=== PATIENT | female | born 1985 | race Caucasian/White ===

== ENCOUNTER 2021-10-21 10:36 | Outpatient (REF) | payer OTHER, SELFPAY ==
[2021-10-21 15:36] LABS: CT PCR NOT DETECTED (Not Detect.); NG PCR NOT DETECTED (Not Detect.)
[2021-10-22 07:47] LABS: Syphilis Screen Nonreactive (Nonreactive)
[2021-10-22 07:49] LABS: HBc Num1 0.05 S/CO (0.00-0.79); HIV AB/AG Nonreactive (Nonreactive); HIV Num 1 0.06 S/CO (0.00-0.99); Hepatitis B Core Antibody Nonreactive (Nonreactive); ~HepC Num1 0.08 S/CO (0.00-0.79); ~Hepatitis C Antibody Nonreactive (Nonreactive)
[2021-10-24 02:32] LABS: HPV mRNA E6/E7 rflx Not Detected (Not Detected)
== END 2021-10-21 10:37 | disposition home or self-care (01) ==
LOC: HO.LAB 10:36
PROVIDERS: PCP Internal Medicine; Visit Provider Advanced Practice Midwife
DX: Z01.419 Encounter for gynecological examination (general) (routine) without abnormal findings (principal); Z11.51 Encounter for screening for human papillomavirus (HPV); Z11.4 Encounter for screening for human immunodeficiency virus [HIV]; Z20.2 Contact with and (suspected) exposure to infections with a predominantly sexual mode of transmission
CPT/HCPCS: 36415; 86704; 86780; 86803; 87389; 87491; 87591; 87624; 88142

== ENCOUNTER → 2022-02-25 08:35 | Outpatient (BNVA) | payer OTHER, SELFPAY | PROVIDERS: PCP Internal Medicine; Visit Provider Advanced Practice Midwife | DX: Z30.433 Encounter for removal and reinsertion of intrauterine contraceptive device (principal) | CPT/HCPCS: 58300; 58301; 81025 ==

== ENCOUNTER → 2023-01-28 09:05 | Outpatient (BNVA) | payer OTHER, SELFPAY | PROVIDERS: PCP Internal Medicine; Visit Provider Advanced Practice Midwife | DX: Z13.89 Encounter for screening for other disorder (principal) ==

== ENCOUNTER 2024-02-04 09:10 | Outpatient (AMB) | payer OTHER, SELFPAY ==
[2024-02-04 09:26] VITALS: BP 98/60; BMI 22.9
--- NOTE | 2024-02-04 09:26 | A.OFFVIS_ITS ---
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 Doing well with no concerns. She tries to eat healthy, is to start exercising. Currently is not sexually active. She denies vaginal itching and irritation. STI screening offered; she accepts. Denies family history of breast, ovarian or colon cancer. Last pap smear 2021, negative. 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 Sexually active: No Sexual orientation: Straight/Heterosexual Gender identity: Female Female Reproductive History Menstrual Age of Menarche: 14 Total pregnancies: 0 Date of last pap smear: 10/22/21 History of abnormal pap smear: No Review of Systems Const All systems reviewed & are unremarkable except as noted in HPI and below Reports as per HPI Eyes Reports no additional complaints ENT Reports no additional complaints Card Reports no additional complaints Resp Reports no additional complaints GI Reports as per HPI and Reports no additional complaints Reports as per HPI Musc Reports no additional complaints Skin/Breast Reports as per HPI Neuro Reports no additional complaints Psych Reports no additional complaints Endo Reports no additional complaints Giovany/Lymph Reports no additional complaints Aller/Immun Reports no additional complaints Physical Exam Vital Signs: Last Vital Signs BP 98/60 02/04/24 09:26 BMI result Body Mass Index 22.9 Const General: cooperative, healthy appearing, no acute distress, well developed and alert Orientation/consciousness: patient oriented x3 HEENT Head: Yes normal to inspection Eyes General: appearance normal, both eyes and all related structures Neck Neck: Yes normal visual inspection Thyroid: Thyroid normal Chest Other: Bilateral scars Chest palpation & inspection: normal inspection of the chest and other (no puckering, dimpling, peau de orange, retraction, discharge, masses) Breast/axilla inspection: normal inspection of the breasts Breast/axilla palpation: normal palpation of the breasts Resp Effort & Inspection: normal respiratory effort GI Inspection: Yes normal to inspection Palpation (GI): Soft to palpation Rectal Exam - Female: deferred General: Yes bladder normal to palpation External Female Exam: normal external appearance and normal appearance of the urethra Speculum Exam - Vagina: normal appearance of the vagina, normal palpation and normal vaginal discharge Speculum Exam - Cervix: normal appearance of the cervix, normal palpation and Other cervical findings present (IUD strings present) Bimanual exam- vagina & uterus: normal bimanual exam, normal palpation, uterine size normal, bladder normal to palpation, normal palpation and non-tender Bimanual Exam- Adnexa, other: no masses Skin General skin exam: no rashes or lesions noted Rashes: no rashes Neuro General: patient oriented x3 Cognition (Neuro): normal cognition Extrem General: Yes normal to inspection Psych Attitude: cooperative Thought process: Normal thought process present Assessment & Plan Assessment & Plan (1) Encounter for well woman exam with routine gynecological exam: Code(s): Z01.419 - Encounter for gynecological examination (general) (routine) without abnormal findings Plan Discussed: Current recommendations for pap smears per ASCCP guidelines. Breast awareness and periodic breast exams. Maintain a healthy lifestyle including a well balanced diet and routine exercise. Use condoms for STI and prevention. Patient verbalizes understanding and agrees to the plan of care. She was given opportunity to ask questions and all questions were answered to the best of my ability. RTO in one year for annual manager philosophy examination. This note is constructed using voice recognition software. While every effort has been made to ensure accuracy, tailing hand errors may have been included. Orders: Orders HIV Ab/Ag Today Z20.2 - Contact with and (suspected) exposure to infections with a predominantly sexual mode of transmission Hepatitis C Antibody Reflex Today Z20.2 - Contact with and (suspected) exposure to infections with a predominantly sexual mode of transmission Hepatitis B Core Antibody Today Z20.2 - Contact with and (suspected) exposure to infections with a predominantly sexual mode of transmission Syphilis Screen Today Z20.2 - Contact with and (suspected) exposure to infections with a predominantly sexual mode of transmission Coding Level of Care Code Est Pt Prev Care 18-39y(17947) Diagnoses Encounter for well woman exam with routine gynecological exam Z01.419
== END 2024-02-04 11:00 | disposition home or self-care (01) ==
PROVIDERS: PCP Internal Medicine; Visit Provider Advanced Practice Midwife
DX: Z01.419 Encounter for gynecological examination (general) (routine) without abnormal findings (principal)
CPT/HCPCS: 99395

== ENCOUNTER 2024-02-04 09:10 | Outpatient (REF) | payer OTHER, SELFPAY ==
[2024-02-05 15:24] LABS: BV Int Neg Control Negative (Negative); BV Int Pos Control Positive (Positive)
== END 2024-02-04 09:11 | disposition home or self-care (01) ==
LOC: HO.LNP 09:10
PROVIDERS: Visit Provider Advanced Practice Midwife
DX: Z01.419 Encounter for gynecological examination (general) (routine) without abnormal findings (principal); Z20.2 Contact with and (suspected) exposure to infections with a predominantly sexual mode of transmission
CPT/HCPCS: 87480; 87510; 87660

== ENCOUNTER 2024-05-12 11:24 | Outpatient (AMB) | payer OTHER, SELFPAY ==
--- NOTE | 2024-05-12 11:31 | AM.OFFWIN_ITS ---
Intake Vital Signs 3 05/12/24 11:34 Height 5 ft 7 in Intake Visit Reasons: rt side of face into ear Intake Note: pt is here for right side of face into ear Patient Tobacco Use Status: Never used Tobacco Allergies No Known Allergies Allergy (Verified 05/12/24 11:35) Do you need a note to return to daycare/school/sports/work: No HPI HPI Comments 2 History of Present Illness0 Details 39 y/o female patient who presents to [facility] walk in clinic with c/o Poison Pastora rash on the face and neck. She was working on her garden few days ago, and believes she might have been in-contact with Poison Pastora plant. She noticed the rash 2 days ago on her face. Reports that rash is very itchy and burning. Denies SOB, CP or wheezing. 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 Hives present erythematous. 2. Hives present erythematous. Resp Effort & Inspection: normal respiratory effort and able to speak in complete sentences Auscultation: clear to auscultation bilaterally Cardio Heart sounds: S1 normal heart sound present and S2 normal heart sound present Skin Other: Erythematous Hives on face and neck. General skin exam: dry skin, erythema and lichenification Neuro General: patient oriented x3, gait normal and moves all extremities Psych Speech and movement: Normal speech and movement present Assessment & Plan Assessment & Plan (1) Rash and nonspecific skin eruption: Code(s): R21 - Rash and other nonspecific skin eruption Plan: Ordered Topical and oral steroids Zyrtec BID, May take Benadrly at bed time. Medications: New 2 triamcinolone acetonide 0.1% 1 appl topical BID 30 grams 0RF R21 - Rash and other nonspecific skin eruption prednisone 50 mg PO DAILY 5 days 5 tabs 0RF R21 - Rash and other nonspecific skin eruption cetirizine (Zyrtec) 10 mg PO DAILY PRN 90 tabs 0RF allergy symptoms R21 - Rash and other nonspecific skin eruption Coding Level of Care Code Est Pt Level 3 (61438) Diagnoses Rash and nonspecific skin eruption R21 Time Spent (min) 15
== END 2024-05-12 12:20 | disposition home or self-care (01) ==
PROVIDERS: PCP Internal Medicine; Visit Provider Nurse Practitioner Family
DX: R21 Rash and other nonspecific skin eruption (principal)
CPT/HCPCS: 99213

== ENCOUNTER 2025-02-07 12:56 | Outpatient (AMB) | payer OTHER, SELFPAY ==
[2025-02-07 13:16] VITALS: BP 108/70; PULSE 83; TEMP 37.2; O2SAT 97
--- NOTE | 2025-02-07 13:16 | MHC.OFFWIV ---
Intake Vital Signs 02/07/25 13:16 Height 5 ft 7 in BMI Reason not done Patient refused/unable BP 108/70 Blood Pressure Location Lt brachial Position Sitting Pulse 83 Pulse Source Pulse Oximeter Temp 99.0 F Temp Source Oral Pulse Oximetry (%) 97 Oxygen Delivery Method Room Air Intake Visit Reasons: EP flu symptoms-cough, congestion Patient Tobacco Use Status: Never used Tobacco Allergies No Known Allergies Allergy (Verified 02/07/25 13:16) Do you need a note to return to daycare/school/sports/work: Yes HPI HPI Comments History of Present Illness Details Patient is a 39yo F with hx of asthma who presents with flu like symptoms Mother tested + Flu A, this am and patient symptomatic first. They live near eachother Onset symptoms Wednesday, Wednesday worse + fever, body aches and No nausea/vomiting fatigue + diarrhea, loose/watery No melena or rbrbp Tried OTC cold/sinus Last dose yesterday + subjective fever/chills worse wednesday/wednesday + cough congestion, Asthma but not using rescue PFSH Medical History Asthma Surgical History Hx of bilateral breast reduction surgery Family History Paternal Aunt History of breast cancer Paternal Grandmother Diabetes Father Heart disease Social History Household Members: None Housing: Apartment Alcohol intake: current Alcohol intake frequency: holidays/special occasions only Patient Tobacco Use Status: Never used Tobacco Current occupational status: employed 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 Sexual orientation: Straight/Heterosexual Gender identity: Female Female Reproductive History Menstrual Age of Menarche: 14 Review of Systems Const Reports body aches, Reports chills, Reports fatigue and Reports fever(s) Eyes Denies change in vision ENT Denies otalgia, Reports nasal congestion and Denies sore throat Card Denies chest pain, Denies syncope and Denies dyspnea Resp Reports cough and Denies dyspnea GI Reports abdominal pain, Denies melena, Denies hematochezia, Reports diarrhea, Denies nausea and Denies vomiting Musc Reports myalgias Skin/Breast Denies rash Neuro Denies syncope Endo Reports fatigue Physical Exam Vital Signs: Last Vital Signs Temp 99.0 F 02/07/25 13:16 Pulse 83 02/07/25 13:16 BP 108/70 02/07/25 13:16 Pulse Ox 97 02/07/25 13:16 Oxygen Delivery Method Room Air 02/07/25 13:16 General: Non-toxic, NAD. Speaking full sentences. Skin: Warm dry throughout Eye: PERRL, EOMI HENT: Airway patent. Uvula midline. No pharyngeal erythema or edema. No SUPERVISOR COKE HANDLING. Bilateral canals clear. Minimal L TM fluid but both non-erythematous, non-bulging. No TM perforation or hemotympanum noted. Respiratory: Faint rhonchi bilaterally without wheeze or crackle. Cardiac: RRR. No murmur Abdominal: BS present but slightly diminished throughout. Non-tender throughout. No palpable masses. No abdominal distention or pusatile mass. Neurology: Alert. No aphasia or facial droop. Gait without abnormality Psych: Good mood and affect Assessment & Plan Assessment & Plan (1) Influenza-like symptoms: Code(s): R68.89 - Other general symptoms and signs Plan: Patient seen and evaluated. Non-toxic appearing. o acute abdomen on exam Use albuterol for rhonchi/asthma symptoms Control fever at home with tylenol [place] diet Influenza/covid/flu swab ordered and obtained/sent to lab Work note given Patient gave verbal understanding and had no additional questions or concerns at time of discharge All questions answered Orders: Orders SARS-CoV2/FLU/RSV Today R68.89 - Other general symptoms and signs Coding Level of Care Code Est Pt Level 3 (59040) Diagnoses Influenza-like symptoms R68.89
--- OUTSIDE RECORDS SUMMARY | 2025-02-07 14:10 | XMS_ITS | Patient Health Record ---
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 Name Role Phone TAHIRANETTELITABRITANYLETITIA Unavailable Allergies No Known Allergies Reason For Referral No Information Medications Medication SIG (Take, Route, Frequency, Duration) Notes Start Date End Date Status Albuterol Sulfate HFA 108 (90 Base) MCG/ACT Inhalation for 24 Days Active Zithromax Z-Bret 250 MG Two tablets one d ay on then one tablet daily Orally once a day for 5 days 09/18/2024 Active Benzonatate 200 MG 1 capsule as needed Orally Three times a day for 5 days 09/18/2024 Active Social History Tobacco Use: Social History Observation Description Date Details (start date - stop date) Never Smoker NA - NA Tobacco Control (Standard) Question Answer Notes Tobacco use: Nonsmoker Vital Signs Height 67 in 09/18/2024 Patient Reported Normal Blood Pressure Patient Reported Normal Temperature Weight 140 lbs 09/18/2024 Patient Reported Normal Blood Pressure Patient Reported Normal Temperature BMI 21.92 kg/m2 09/18/2024 Patient Reported Normal Blood Pressure Patient Reported Normal Temperature Encounters Encounter Location Date Provider Diagnosis [facility] [address] [place] [address] 09/18/2024 ELIANE MCCARTHY Acute upper respiratory infection, unspecified J06.9 Assessments Encounter Date Diagnosis (ICD Code) Assessment Notes Treatment Notes Treatment Clinical Notes Section Notes 09/18/2024 Acute upper respiratory infection, unspecified (ICD-10 - J06.9) TREATMENT PLAN: VIRAL UPPER RESPIRATORY INFECTION Patient presents with URI symptoms which are most likely viral. There is no component of the clinical history supporting bacterial infection. This is a lower risk patient with typical mild symptoms. 1. Make sure to rule out flu/covid by obtaining a home test from your pharmacy. If covid/flu positive, will consider paxlovid or tamiflu if you are a candidate. We recommend that you complete the COVID-19 test ordered today. You may choose to have it conducted at a laboratory, or alternatively, you can purchase an at-home [place] COVID-19 test from your local pharmacy instead of the lab test. 2. CAUTIONTakin g antibiotics for a viral infection or allergies is not recommended. Antibiotics are medications that fight infections caused by bacteria; but Flu, COVID, and other common infections are caused by viruses. Taking antibiotics when you actually have a viral infection does more harm than good. If you take an antibiotic when you have a viral infection, the antibiotic attacks bacteria in your body- bacteria that are either beneficial or at least not causing disease. This misdirected treatment can then promote antibiotic-resista nt properties in harmless bacteria that can be shared with other bacteria or create an opportunity for potentially harmful bacteria to replace harmless ones. This can result in untoward effects of gastrointestinal issues (diarrhea, bloating, discomfort), or worsening of symptoms due to overgrowth of harmful bacteria (pneumonia). We understand your symptoms may transform and change. Therefor, if there is no improvement in current symptoms at all in 3-5 days, you can consider antibiotic therapy but we will leave this decision to you. Consider this if you continue to have fevers >100.4F or have no improvement in symptoms at all. 3. Ibuprofen 400-800mg every 8 hours for pain, fever, chills, body aches (if not allergic) 4. Can offer benzonatate 200mg every 8 hours or bromfed liquid for cough but the efficacy is similar to over the counter cough medicine. 5. Can use over the counter cold/flu medicines for relief. Can use flonase 2 puffs per nostril as nasal steroid for inflammation relief, especially if there is postnasal drip or runny nose. Cepachol or chloraseptic for sore throat. Can also use honey. (if not allergic) 6. If desired, can send albuterol inhaler 2 puffs as needed every 6 hours for shortness of breath or wheezing to help open up airways. 7. I generally recommend avoiding treating viral infections with steroids in the acute phase (~<7 days) to allow the natural immune system to build an appropriate response. Recommended follow up in 3 days. Female patients only please note: Control efficacy can be DIMINISHED while taking antibiotics. It is advised to take additional measures to prevent .PATIENT EDUCATION: UPPER RESPIRATORY INFECTION Overview An upper respiratory infection, or URI, is an infection of the nose, sinuses, or throat. URIs are spread by coughs, sneezes, and direct contact. The common cold is the most frequent kind of URI. The flu and sinus infections are other kinds of URIs. Almost all URIs are caused by viruses. Antibiotics won't cure them. But you can treat most infections with home care. This may include drinking lots of fluids and taking ztet-vak-vffnngd pain medicine. You will probably feel better in 4 to 10 days. Follow-up care is a michele part of your treatment and safety. Be sure to make and go to all appointments, and call your doctor if you are having problems. It's also a good idea to know your test results and keep a list of the medicines you take. How can you care for yourself at home? To prevent dehydration, drink plenty of fluids. Choose water and other clear liquids until you feel better. If you have kidney, heart, or liver disease and have to limit fluids, talk with your doctor before you increase the amount of fluids you drink. Ask your doctor if you can take an kggz-tij-xwlcwev pain medicine, such as acetaminophen (Tylenol), ibuprofen (Advil, Motrin), or naproxen (Aleve). Be safe with medicines. Read and follow all instructions on the label. No one younger than 20 should take aspirin. It has been linked to Sylvester syndrome, a serious illness. Be careful when taking kten-gyq-xmdcqoi cold or flu medicines and Tylenol at the same time. Many of these medicines have acetaminophen, which is Tylenol. Read the labels to make sure that you are not taking more than the recommended dose. Too much acetaminophen (Tylenol) can be harmful. Get plenty of rest. Use saline (saltwater) nasal washes to help keep your nasal passages open and wash out mucus and allergens. You can buy saline nose sprays at a grocery store or drugstore. Follow the instructions on the package. Or you can make your own at home. Add 1 teaspoon of non-iodized salt and 1 teaspoon of baking soda to 2 cups of distilled or boiled and cooled water. Fill a squeeze bottle or neti pot with the nasal wash. Then put the tip into your nostril, and lean over the sink. With your mouth open, gently squirt the liquid. Repeat on the other side. Use a vaporizer or humidifier to add moisture to your bedroom. Follow the instructions for cleaning the machine. Do not smoke or allow others to smoke around you. If you need help quitting, talk to your doctor about stop-smoking programs and medicines. These can increase your chances of quitting for good. 09/18/2024 Other Follow the treatment plan as indicated by the provider. Take any medications as prescribed. If you have any questions about your prescription, ask the pharmacist. Call 911 anytime you think you may need emergency care. For example, call if:You have severe trouble breathing.You have a seizure.Call your doctor now or seek immediate medical care if:You have trouble breathing.You have a fever with a stiff neck or a severe headache.You have pain or pressure in your chest or belly.You have a fever or cough that returns after getting better.You feel very sleepy, dizzy, or confused.You are not urinating.You have severe muscle pain.You have severe weakness, or you are unsteady.You have medical conditions that are getting worse.Watch closely for changes in your health, and be sure to contact your doctor if:You do not get better as expected.You are having a problem with your medicine. Risks, benefits, and side effects of medications (if any) discussed with patient, who agreed to the treatment plan.Patient's condition was stable at the end of the televisit. Follow-up instructions provided, including:Scheduling next appointmentMonitoring symptomsAdhering to treatment planContacting clinic with concernsPatient understood and agreed to comply with the follow-up plan. Plan Of Treatment No Information Insurance Providers Payer Name Payer Address Payer Phone Subscriber Number Group Number Insured Name Patient Relationship to Insured Coverage Start Date Coverage End Date Person [facility] [address] [place] [phone] [id number] Sidney Gaytan Self - patient is the insured Medical (General) History Medical History History ICD Code asthma
--- OUTSIDE RECORDS SUMMARY | 2025-02-07 14:10 | XMS_ITS ---
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 2. CAUTIONTakin john antibiotics for a viral infection or allergies [...] include drinking lots of fluids and taking qklg-xgh-gsnrmnj pain medicine. You will probably feel better [...] your doctor if you can take an fkfs-dlk-tlognio pain medicine, such as acetaminophen (Tylenol), ibuprofen (Advil, Motrin), or naproxen (Aleve). Be safe with medicines. Read and follow all instructions on the label. No one younger than 20 should take aspirin. It has been linked to Sylvester syndrome, a serious illness. Be careful when taking apge-wjy-mldvpht cold or flu medicines and Tylenol at [...] with the follow-up plan. Plan Of Treatment Medication Medication Name Sig Start Date Stop Date Notes Zithromax Z-Bret 250 MG Two tablets one d ay on then one tablet daily Orally once a day for 5 days 09/18/2024 Benzonatate 200 MG 1 capsule as needed Orally Three times a day for 5 days 09/18/2024 Treatment Notes Assessment Notes Acute upper respiratory infe ction, unspecified TREATMENT PLAN: VIRAL UPPER RESPIRATORY INFECTION Patient [...] pharmacy instead of the lab test. 2. CAUTIONTaking antibiotics for a viral infection or allergies [...] disease. This misdirected treatment can then promote antibiotic-resistant properties in harmless bacteria that can be [...] include drinking lots of fluids and taking qnnz-bpg-xagdyoq pain medicine. You will probably feel better [...] your doctor if you can take an acro-omh-gnqstwv pain medicine, such as acetaminophen (Tylenol), ibuprofen (Advil, Motrin), or naproxen (Aleve). Be safe with medicines. Read and follow all instructions on the label. No one younger than 20 should take aspirin. It has been linked to Sylvester syndrome, a serious illness. Be careful when taking alkm-wso-apvdamy cold or flu medicines and Tylenol at [...] increase your chances of quitting for good. Other Follow the treatment plan as indicated [...] are having a problem with your medicine. Next Appt Details Follow Up: PCP, 2-3D, Reason : Progress Notes * Nico HORNERB:1985 (39 yo F)Acc No.[id number]:09/18/2024 Patient:?Sidney HORNER Provider:?ELIANE MCCARTHY MD :1985???Age:39 Y???Sex:Female D ate:09/18/2024 Phone: Address:[address] [place] [address] IVORY [id number] Subjective: * Chief Complaints: * ???Cold / FluPatient request ing service from promotional campaign [employer] * HPI: ???TeleHealth Complaint History:? 39 year-old female, not , presents with upper respiratory complaint. Medical History: Asthma, previous use of antibiotics/anti-viral for similar symptoms (azithromycin) and treatment for a similar condition before. Medications: Previous treatment with a steroid for similar symptoms, previous treatment with an inhaler for similar symptoms, Albuterol Sulfate 2 puffs As needed, no regular use of medications and no treatment with Tamiflu in the last 2 weeks. Allergies: No allergies to medications. Risk Factors: Vaccination of influenza in the current season, no hospitalization in the last month and no close contact with a person who has been diagnosed with Influenza within the last 5 days. Surgical History: No surgical procedure in the last year. PATIENT REPORTS: COUGH CONGESTION MALAISE FEVER WITH GREEN MUCOUS PRODUCTION X 3 DAYS, TAKES DAILY MEDS, DENIES MED ALLERGIES, DENIES . ???TeleVisit Consent:?Patient's identification was confirmed and they were instructed that this visit is based on visual, audio information in addition to previous medical notes and diagnostics. As well it relies on the patient for information related to their physical well being, diagnosis and treatment. The patient acknowledges that they are not being recorded today, and they do not have permission to record this visit either. Patient verbalized understanding to all of the above. * ROS:?All Other Systems:?Review of Systems (ROS)?See HPI for details.?The patient is also suffering from cough (dry), chest congestion, stuffed-up nose, nasal discharge, sore throat, hoarseness and body aches. The patient denies the following: wheezing, feeling of sand or foreign body in eye, redness of eye, nausea, vomiting and diarrhea. * Medical History:? * Surgical History:?Denies Pas t Surgical History * Hospitalization/Major Diagno stic Procedure:?Denies Past Hospitalization * Family History:?No Family Hi story documented..? * Social History:?Tobacco Use:?Tobacco Control (Standard)?Tobacco use:?Nonsmoker.?Drugs/Alcohol:?Do you drink alcohol?: Yes 1 Drink Monthly Social. * Medications:?TakingAlbuterol Sulfate HFA 108 (90 Base) MCG/ACT Aerosol Solution Inhalation Medication List reviewed and reconciled with the patientTaking Albuterol Sulfate HFA 108 (90 Base) MCG/ACT Aerosol Solution Inhalation Medication List reviewed and reconciled with the patient * Allergies:?N.K.D.A.no[Allerg ies Verified] Objective: * Vitals:?Ht: 67 in, Wt:140lbs , BMI:21.92Index. Patient Reported Normal Blood Pressure Patient Reported Normal Temperature. * Examination: ???General Examination: ?GENERAL APPEARANCE:?in no acute distress.?EARS:?hearing grossly intact.?NEUROLOGIC:?alert and oriented , speech clear.?PSYCH:?mood/affect normal, understands directions.? * Physical Examination:?CAM, COOP, SKIN INTACT, PALE, RESP EVEN UNLABORED, VOICE IS HOARSE, COUGH PRODUCTIVE, FULL ROM, AMBULATORY, FATIGUED. Assessment: * Assessment: 1.?Acute upper respiratory i nfection, unspecified - J06.9 (Primary)??? Plan: * Treatment: 2.?Others? Notes: Follow the treatment plan as indicated by the provider. Take any medications as prescribed. If you have any questions about your prescription, ask the pharmacist. Call 911anytime you think you may need emergency care. For example, call if:You have severe trouble breathing.You have a seizure.Call your doctor nowor seek immediate medical care if:You have trouble [...] expected.You are having a problem with your medicine.?? Clinical Notes:Risks, benefits, and side effects of medications (if any) discussed with patient, who agreed to the treatment plan.Patient's condition was stable at the end of the televisit. Follow-up instructions provided, including:Scheduling next appointmentMonitoring symptomsAdhering to treatment planContacting clinic with concernsPatient understood and agreed to comply with the follow-up plan.?? * Procedure Codes:?CHUCK Yung ant / CC Processing [id number] Office Visit, Est Pt., Level 3 Virtual Visit, Modifiers: 95 * Follow Up:?PCP, 2-3D * Billing Information: * Visit Code:? S9083 [facility] * Procedure Codes:? CHUCK Lillyhant / CC Processing Fee. [id number] Office Visit, Est Pt., Level 3 Virtual Visit. Modifiers: 95 * Sign off status: Completed true * Provider:?ELIANE MCCARTHY MD Da te:?09/18/2024 Generated for Romuloi caesar/Dimitri/eTransmitting on:?02/07/2025 02:10 PM EDT History and Physical Notes * HPI (History of Present Illness) Category Sub-Category Detail Notes Category Not es TeleHealth Complaint History 39 year-old female, not , presents with upper respiratory complaint. Medical History: Asthma, previous use of antibiotics/anti-viral for similar symptoms (azithromycin) and treatment for a similar condition before. Medications: Previous treatment with a steroid for similar symptoms, previous treatment with an inhaler for similar symptoms, Albuterol Sulfate 2 puffs As needed, no regular use of medications and no treatment with Tamiflu in the last 2 weeks. Allergies: No allergies to medications. Risk Factors: Vaccination of influenza in the current season, no hospitalization in the last month and no close contact with a person who has been diagnosed with Influenza within the last 5 days. Surgical History: No surgical procedure in the last year. PATIENT REPORTS: COUGH CONGESTION MALAISE FEVER WITH GREEN MUCOUS PRODUCTION X 3 DAYS, TAKES DAILY MEDS, DENIES MED ALLERGIES, DENIES Physical Examination Category Sub-Category Detail Notes Section Note s CAM, COOP, SKIN INTACT, PALE, RESP EVEN UNLABORED, VOICE IS HOARSE, COUGH PRODUCTIVE, FULL ROM, AMBULATORY, FATIGUED Examination Category Sub-Category Detail Notes Category Not es General Examination GENERAL APPEARANCE: in no acute di stress EARS: hearing grossly inta ct NEUROLOGIC: alert and oriented , speech clear PSYCH: mood/affect normal, understands directions
== END 2025-02-07 13:50 | disposition home or self-care (01) ==
PROVIDERS: PCP Internal Medicine; Visit Provider Physician Assistant
DX: R68.89 Other general symptoms and signs (principal)

== ENCOUNTER 2025-02-07 12:56 | Outpatient (REF) | payer OTHER, SELFPAY ==
[2025-02-07 17:53] LABS: Influenza A PCR POSITIVE (Negative); Influenza B PCR NEGATIVE (Negative); Resp Syncy Virus RNA Qual PCR NEGATIVE (Negative); SARS COV2 PCR INHOUSE NEGATIVE (Negative)
== END 2025-02-07 12:57 | disposition home or self-care (01) ==
LOC: HO.LNP 12:56
PROVIDERS: PCP Internal Medicine; Visit Provider Physician Assistant
DX: R68.89 Other general symptoms and signs (principal); J45.909 Unspecified asthma, uncomplicated
CPT/HCPCS: 0241U